=== PATIENT | male | born 1990 | race Caucasian/White ===

== ENCOUNTER 2022-12-20 14:14 | Outpatient (REF) | payer OTHER, SELFPAY ==
--- NOTE | ~2022-12-20 | MR_ITS ---
MR BRAIN WITHOUT AND WITH IV CONTRAST CLINICAL INFORMATION: Asymmetric hearing loss. COMPARISON: None available. TECHNIQUE: Multiplanar, multisequence MRI of the brain was obtained before and after the intravenous administration of 8.5 mL of Gadavist. FINDINGS: The inner ear structures including the cochlea, vestibules, and semicircular canals exhibit preserved CSF signal intensity with no pathologic enhancement. The vestibular aqueducts are not enlarged. Cranial nerves VII and VIII complexes are normal in morphology. No enhancing CP angle/retrocochlear lesion. There is no pathologic intracranial enhancement. No parenchymal signal abnormality. No acute infarct on diffusion-weighted imaging. No intracranial hemorrhage on the gradient series. No hydrocephalus, extra-axial surface collection, or herniation. The midline intracranial structures are normal. Cerebellar tonsils are normally positioned. Craniocervical junction is normal. Osseous marrow signal intensity remains homogeneous. No significant soft tissue abnormality is appreciated. Retention cyst within the posterior right ethmoid air cells. MR/MR head/brain wo/w con IMPRESSION: No retrocochlear pathology. Unremarkable MRI of the brain and IACs.
== END 2022-12-20 14:15 | disposition home or self-care (01) ==
LOC: HO.MRI 14:14
PROVIDERS: PCP Physician Assistant; Visit Provider Physician Assistant
DX: H91.90 Unspecified hearing loss, unspecified ear (principal)
CPT/HCPCS: 70553; A9585